=== PATIENT | female | born 1985 | race Hispanic/Latino ===

== ENCOUNTER 2017-10-08 15:12 | Emergency (ER) | payer OTHER, SELFPAY ==
[2017-10-08 15:14] VITALS: BP 121/84; PULSE 73; RESP 16; TEMP 36.8; O2SAT 98; BMI 25.0
--- NOTE | 2017-10-08 15:24 | RAD_ITS ---
STUDY: X-RAY - RIGHT HAND REASON FOR EXAM: Female, 32 years old. Laceration third metacarpal phalangeal joint TECHNIQUE: 3 view(s) of the hand. COMPARISON: None. FINDINGS: Normal radiocarpal articulation. Normal distal radioulnar joint. Normal visualized carpal bones. Normal carpal articulations Normal carpometacarpal articulation of the thumb. Normal second through fifth carpometacarpal joints. Normal metacarpi. Normal metacarpophalangeal joint of the thumb. Normal interphalangeal joint of the thumb. Normal proximal and distal phalanges of the thumb. Normal metacarpophalangeal joints of the second through fifth fingers. Normal proximal and distal interphalangeal joints of the second through fifth fingers. Normal phalanges of the second through fifth fingers. The soft tissue structures are unremarkable. RAD/Hand Min 3 Views IMPRESSION: Normal x-ray examination of the hand. Electronically Signed: Frandy Dacosta MD at 16:47 EDT , Service support ,
[2017-10-08] MEDS: Diphth,Pertuss(Acell),Tet Vac 0.5 ML Vial IM (16:02)
[2017-10-08] MEDS: Cefazolin 1 GM/50 ML BAG IV (16:03)
--- NOTE | 2017-10-08 16:21 | ED.DCSUM_ITS ---
- ER Visit Summary Date of Service: 10/08/17 Chief Complaint: [Laceration right hand] History of Present Illness: The patient is a 32 F [presents to the emergency department with a laceration to her right hand that occurred while at work today. Patient states she was mixing some salts in a [employer] when the glass beaker broke lacerating her right hand. Patient is right-hand dominant. Patient unsure of her last tetanus.] Physical Examination: [Right hand-patient has a 1 cm flap-like laceration over the dorsum of the distal phalanx of the right long finger. Patient also has a laceration that is 1.5 cm over the dorsum of the third MCP joint. Patient has decreased ability to extend the long finger at the MCP joint. Patient nervously intact distally.] Test Results: [X-ray of right hand showed no foreign bodies or fractures.] Emergency Department Course and Treatment: Wound sterilely draped and prepped. The 1 cm laceration over the dorsum of the distal phalanx of the right long finger was cleansed with Shur-Clens and irrigated with saline. Anesthetized locally with 1% lidocaine total of 1 cc. Using 5-0 nylon a total of 3 single interrupted sutures placed with good wound edge approximation. 1.5 cm laceration to dorsum of third MCP joint was sterilely draped and prepped as well. Wound was cleansed with Shur-Clens and irrigated with saline. Using 1% lidocaine a total of 3 cc used to anesthetize the area locally. The wound was inspected and no foreign bodies were noted within the wound. Patient is noted to have an extensor tendon laceration. Wound was again irrigated with copious saline. Using 5-0 nylon a total of 3 single interrupted sutures placed to close the skin. Patient had a aluminum extension splint applied. Clean dressing applied. [] Treatment Plan: [I initially discuss case with Dr. Willams who asked that I close the skin and she will see the patient in the office tomorrow for further exploration and definitive treatment. Patient received tetanus and Ancef in the emergency department.] Disposition: [Discharged to home in stable condition] Impression: [Laceration right hand 1.5 cm with extensor tendon laceration- simple repair Laceration right long finger 1.0 cm with simple repair] This note was generated with [employer] software. It may contain incorrect words, spelling, and punctuation that were not noted in review of the chart prior to signing ED Disposition - Plan for ED Patient: Chief Complaint: Upper Extremity Injury Referrals: Care Physician,No Primary [Primary Care Provider] -
--- NOTE | 2017-10-08 16:21 | ED.DEP ---
ED Disposition - Plan for ED Patient: Chief Complaint: Upper Extremity Injury Instructions: ED Laceration Hand Prescriptions: Cephalexin [Keflex] 500 mg PO Q6 #40 cap Referrals: Care Physician,No Primary [Primary Care Provider] - Lizzette Willams DO [STAFF PHYSICIAN] - 1 Day
[2017-10-08 16:36] VITALS: PULSE 75; RESP 16; O2SAT 99
== END 2017-10-08 16:43 | disposition home or self-care (01) ==
PROVIDERS: Emergency Provider Emergency Medicine
DX: S66.329A Laceration of extensor muscle, fascia and tendon of unspecified finger at wrist and hand level, initial encounter (principal); S61.212A Laceration without foreign body of right middle finger without damage to nail, initial encounter; W25.XXXA Contact with sharp glass, initial encounter; Y93.9 Activity, unspecified; Y92.89 Other specified places as the place of occurrence of the external cause; Y99.0 Civilian activity done for income or pay; Z23 Encounter for immunization
CPT/HCPCS: 12001; 73130; 90471; 90715; 99285; J7050; A4216

== ENCOUNTER 2018-01-08 09:00 | Outpatient (RCR) | payer OTHER, SELFPAY ==
--- NOTE | 2017-12-18 15:17 | HP.OTEVAL_ITS ---
Patient's Visit Information NELSY METCALF is a 32 year old F, referred to Occupational Therapy by Micah Rosario, with a diagnosis of laceration of other specified muscles fascia and tendons of wrist/hand. Date of Evaluation: 12/18/17 Occupational Therapist: Emily Hatch, JAVY/Kyle, CHT - Subjective Subjective: This 32 year old female was seen for intial OT eval on 12-18-17. Pt states while working [employer] a Beaker broke on her hand and lacerated her extensor tedon- pt states she had sx on 10-15-17. pt would like to gain increase in functional range of motion and strength to perform all BADLS and IADLS - Pain right 4 Pain Intensity Range: 0, 5 - ROM MP: right Long finger -15/65 left RF 0/90 PIP: 0/90 ROM Comments: Right Long finger MCP -15/65 PIP 0/90. Right RF MCP +5/55 PIP 0/ 90. Right LF MCP 0/45 PIP 0/90. pt demo with limited composite fist at this time - Strength Child Care Attendant: right 5# left 25# Lateral Pinch: right 4# left 8# Tripod Pinch: right 4# left 6# - Edema PIP: right MF 6.5 left MF 6.5 - Sensation Sensation Comments: denies - DASH-Disabilities of Arm, Shoulder& Hand DASH Sum: 66 - Goals Goal:: Following S/P 12 weeks pt will demo a right product support technician strength at 30# or greater to increase pts ind. with BADLS and IADls by D/C Goal:: pt will demo a composite fist to ind. perform her BADLs, IADLs and work tasks by d/c Goal:: pt will demo understanding of scar mtg by end of 2nd session. Goal:: pt will report IND. with all BADLs and IADLs by D/C - Rehabilitation General Assessment: PT is S/P right lacerated Extensor tendon right long finger at MPJ. complex laceration right long finger at DIPJ. pt is currently 9 weeks S /P and demo with limited composite fist, and demo weak product support technician following her sx. The limitations have made pt ad. her abilities to perfrom her BADLS and IADLS. Pt would benefit from skilled OT services to return pt to [facility]. Therapy services will follow extensor tendon repair protocol Rehabilitation Potential: Excellent - Anticipated Interventions Anticipated Interventions: A/AAROM/PROM, Strengthening, Scar Care, Modalities, Orthoses, Ergonomic Education, Fine Motor Coord/Karl - Visit Plan Frequency: 1-2x /Week Duration: 4 Weeks General Plan: 1-2x week for 4 weeks to focus on pts AROM, progress to strengthening, pt to use night extension splinting, ROM with sheri straps initially.- TEXT: Thank you for the opportunity to evaluate your patient. For Medicare and Medicare HMO plans, please review the plan of care and approve it. It will need to be FAXED BACK to us at [phone] for Medicare purposes. Please let me know if there are questions or concerns regarding this plan of care. Physician Signature: Date:
--- NOTE | 2018-01-08 09:21 | HP.OTDCSUM ---
HP - OT D/C Summary It has been my pleasure to treat NELSY METCALF under orders from Micah Rosario, for the diagnosis of laceration of other specified muscles fascia and tendons of wrist/hand for a total of 4 visit(s). Please see the following information for a summary of their discharge status. - Objective Objective/Function: pt demo right senior nuclear medicine technologist 30# left 35#. later pinch 6#. tripod pinch 6#. right MF MCP -3/75. right MF PIP 97 - Goals Patient Goals: Regain Mobility, Regain Strength, Use Hand/Wrist/Arm Normally Again Goal:: Following S/P 12 weeks pt will demo a right senior nuclear medicine technologist strength at 30# or greater to increase pts ind. with BADLS and IADls by D/C Goal:: pt will demo a composite fist to ind. perform her BADLs, IADLs and work tasks by d/c Goal:: pt will demo understanding of scar mtg by end of 2nd session. Goal:: pt will report IND. with all BADLs and IADLs by D/C - Plan Plan: D/C with HEP - D/C Information Discharge Comments: pt was seen 1x week for 4 weeks following a ext. tendon repair- pt has progressed well with therapy and reports no concerns at this time- pt has met goals in OT and is D/C at this time. If there are questions or concerns regarding this patient's occupational therapy, please fell free to call me at [phone]. Thank you for the referral of this patient. Sincerely, Emily Hatch, OTR/L, CHT
== END 2018-01-08 14:23 | disposition home or self-care (01) ==
LOC: OT 09:00
PROVIDERS: Visit Provider Orthopaedic Surgery
DX: S66.821D Laceration of other specified muscles, fascia and tendons at wrist and hand level, right hand, subsequent encounter (principal)
CPT/HCPCS: 97110; 97140; 97166; 97168

== ENCOUNTER 2022-06-17 18:46 | Emergency (ER) | payer OTHER, SELFPAY ==
[2022-06-17] VITALS (7 sets, daily range): BP systolic 104–119; BP diastolic 78–93; PULSE 70–88; RESP 14–25; TEMP 36.9; O2SAT 96–100; BMI 29.2
--- NOTE | 2022-06-17 20:40 | EKG12_ITS ---
Test Reason : CP Blood Pressure : / mmHG Vent. Rate : 096 BPM Atrial Rate : 096 BPM P-R Int : 150 ms QRS Dur : 100 ms QT Int : 396 ms P-R-T Axes : 048 038 004 degrees QTc Int : 500 ms Normal sinus rhythm Nonspecific ST and T wave abnormality Prolonged QT Abnormal ECG Confirmed by NINFA MCKEON, KARLENE ([id number]), marketing editor BEN COOK ([id number]) on 06/18/2022 9:19:42 AM Referred By: PERRI Confirmed By:KARLENE OCASIO MD
[2022-06-17 20:58] LABS: Absolute Lymphocyte Count 2.51 X10^3/uL (0.83-4.51); Absolute Neutrophil Count 4.7 X10^3/uL (2.0-7.7); Basophil# 0.04 X10^3/uL; Basophil% 0.5 % (0-1); Eosinophil# 0.06 X10^3/uL; Eosinophils% 0.8 % (0-5); Hematocrit 42.5 % (37-47); Hemoglobin 14.4 g/dL (12.0-15.0); Lymphocyte # 2.51 X10^3/ul (0.83-4.51); Lymphocyte % 31.7 % (19-41); Mean Corp Hgb Conc 33.9 g/dL (32-36); Mean Corpuscular Hgb 30.2 pg (27.0-32.0); Mean Corpuscular Volume 89.1 fL (81-99); Monocyte# 0.58 X10^3/uL; Monocyte% 7.3 % (0-10); NRBC Flagged by Analyzer 0 % (0-5); Neutrophil # 4.71 X10^3/uL (2.7-7.7); Neutrophil % 59.4 % (47-70); Platelet Count 272 K/mm3 (150-450); RBC Distribution Width CV 11.7 % (11.6-14.6); Red Blood Count 4.77 M/mm3 (4.2-5.4); White Blood Count 7.9 K/mm3 (4.4-11.0)
[2022-06-17 21:06] LABS: Anion Gap 9 (5-15); BUN 17 mg/dL (7-18); BUN/Creat Ratio 28.1 RATIO (10-20); Calcium,Total 9.2 mg/dL (8.5-10.1); Chloride 103 mmol/L (98-107); Creatinine, Serum 0.61 mg/dL (0.55-1.02); EST Glomerular Filtration Rate 119 mL/min (>60); Est Glom Filt Rate - Afr Amer 144 mL/min (>60); Estimated Creatinine Clearance 115.83 ml/min; Glucose 100 mg/dL (74-106); Potassium 3.4 mmol/L (3.5-5.1); Sodium Level 138 mmol/L (136-145); Troponin-I HS < 3 pg/mL (3.0-54.0)
--- NOTE | 2022-06-17 21:10 | RAD_ITS ---
STUDY: X-RAY CHEST REASON FOR EXAM: Female, 36 years old. chest pain TECHNIQUE: Single frontal view of the chest. COMPARISON: None. FINDINGS: The lungs are clear and expanded. There is no demonstrated pleural abnormality. Normal size heart. Normal mediastinum and qian. Normal visualized pulmonary arteries. Normal visualized aortic arch and descending thoracic aorta. Normal visualized thoracic spine. Normal visualized ribs, clavicles, and shoulders. There is no demonstrated abnormality of the visualized soft tissue structures of the upper abdomen. RAD/Chest 1 View (Portable) IMPRESSION: Normal x-ray examination of the chest. Electronically Signed: Frandy Dacosta MD at 21:39 EST ,
--- NOTE | 2022-06-17 22:39 | ED.VIS.CHEST ---
HPI History of Present Illness Chief Complaint: Chest Pain Informant: patient Onset/Context/Timing Onset: Today Activity at onset: sudden and activity on onset (sitting in passenger seat in car with her , on way to restaraunt to eat dinner) Narrative Narrative: Patient presents soon after she had an episode of chest discomfort. She states the episode lasted about 30 minutes, substernal discomfort, tingling and discomfort in the left upper extremity, feeling a little short of breath, near syncopal, and felt like her heartbeat was beating hard but not necessarily irregularly or quickly. In fact, she was checking her apple watch to watch her heart rate, and it was in the 70s and 80s the entire time throughout this. She has a history of mitral valve prolapse but no other medical problems. She takes no medications for it. She states now she feels fine, but she still has some tingling in her left upper extremity and since the patient has been here for about 2 or 3 hours prior to my evaluation, she states she has had fleeting episodes of mild substernal any of the other symptoms recurring, lasting a minute or so. No pleuritic symptoms. No syncope. She has a cough and felt tired throughout the day today with mild intermittent brief sharp left-sided chest pains prior to this above episode. No fevers or chills. No leg pain or swelling. No history of DVT or PE or recent travel out of the area, no other hospitalization, immobilization, or recent surgery. [facility] Medical History (Updated 06/17/22 @ 23:[address] Lasha Youngblood MD) Anemia Fibroadenoma of breast Mitral valve prolapse Home Medications ibuprofen 200 mg tablet (Advil) 200 mg PO Q6H PRN Pain 04/26/21 [History Last Taken Unknown] pantoprazole 40 mg tablet,delayed release 40 mg PO DAILY #14 tabs 06/17/22 [Rx Last Taken Unknown] Allergy/AdvReac Type Severity Reaction Status Date / Time No Known Allergies Allergy Verified 06/17/22 18:53 Family History Father Diabetes Mother Hypertension Surgical History S/P tendon repair Social History (Updated 06/17/22 @ 22:[address] Lasha Youngblood MD) Smoking Status: Never smoker alcohol intake: never substance use type: does not use ROS ROS ED Constitutional Constitutional ED: Denies chills or fever(s) Eyes Eyes: Denies change in vision or diplopia ENT ENT ED: Denies rhinorrhea or sore throat Cardiovascular Cardiovascular: Reports as per HPI, chest pain and pounding heartbeat; Denies irregular heart rhythm, orthopnea or palpitations Respiratory/Chest Respiratory/Chest: Reports dyspnea; Denies cough, dyspnea on exertion or orthopnea Gastrointestinal Gastrointestinal: Denies abdominal pain, diarrhea, nausea or vomiting Genitourinary Genitourinary ED: Denies dysuria or hematuria Musculoskeletal Musculoskeletal: Denies back pain or neck pain Integumentary Denies abscess or rash Neurologic Neurologic: Reports paresthesias LUE; Denies headache(s) or weakness Psychiatric Psychiatric: Denies anxiety or suicidal thoughts EXAM Physical Exam Const Vital Signs: 06/17/22 18:48 06/17/22 18:54 06/17/22 19:50 Temperature 98.4 F Temperature Source Oral Pulse Rate 88 73 Respiratory Rate 20 H 15 Respiratory Effort Normal Non-Labored Blood Pressure 119/78 107/83 H Blood Pressure Mean 91 91 Pulse Ox 100 97 Oxygen Delivery Method Room Air Room Air 06/17/22 20:02 06/17/22 20:40 06/17/22 21:05 Temperature Temperature Source Pulse Rate 86 70 Respiratory Rate 17 14 Respiratory Effort Blood Pressure 104/84 H 105/87 H Blood Pressure Mean 90 93 Pulse Ox 98 97 Oxygen Delivery Method Room Air Room Air Room Air 06/17/22 22:32 06/17/22 23:04 Temperature Temperature Source Pulse Rate 81 76 Respiratory Rate 25 H 17 Respiratory Effort Blood Pressure 116/93 H 107/89 H Blood Pressure Mean 100 95 Pulse Ox 96 97 Oxygen Delivery Method Room Air Room Air Positive well nourished and well developed General Appearance ED: well developed and NAD HEENT Reports moist mucous membranes normocephalic and atraumatic Eyes PERRL and EOMs intact bilaterally Neck full ROM, supple and no JVD Resp normal respiratory effort and clear to auscultation bilaterally Cardio regular rate, regular rhythm and no murmurs Rate: Negative for tachycardic Peripheral Pulses: pulses 2+ throughout GI non-tender and non-distended Auscultation: normoactive bowel sounds Palpation: soft Back/Spine no CVA tenderness General Back: other FROM Extremity normal to inspection and no calf tenderness General Extremety ED: Negative for edema, pulses abnormal or tenderness General Extremity: Negative for edema or pulses abnormal Neuro oriented x3, CN's II-XII intact bilaterally and no sensory deficits noted Sensorium / Orientation: awake and alert Motor Exam: strength 5/5 throughout Skin no rashes or lesions noted and no wounds Heart Score History: Moderately Suspicious ECG: Nonspecific Repolarization Age: </= 45 years Risk Factors: No Risk Factors Troponin: </= Normal Limit Score: 2 MDM MDM MDM Narrative Medical decision making narrative: Patient had protocol orders in, a cardiac work-up including chest x-ray, labs, EKG, hours prior to my evaluation. It is all normal. I did a repeat troponin that was performed more than 2 hours after the initial, results are noted. I also added a D-dimer which was normal. Patient had a couple episodes of sharp left-sided nonpleuritic chest discomfort that were brief, no telemetry events or dysrhythmias while she was here. She was given a GI cocktail, but did not make major difference, but she did not have any more the substernal discomfort. Seems she was having 2 different types of chest discomfort. Then she offers more information that she has been having mild versions of these symptoms at night often. Perhaps this is GI related. We will place her on a 2-week course of a PPI and encouraged outpatient follow-up, all questions answered at the bedside. Lab Data Attestation: I reviewed the patient's lab results. Labs: Laboratory Results - last 24 hr 06/17/22 06/17/22 06/17/22 19:08 19:08 22:57 WBC 7.9 RBC 4.77 Hgb 14.4 Hct 42.5 MCV 89.1 MCH 30.2 MCHC 33.9 RDW Std Deviation 38.0 RDW Coeff of Elan 11.7 Plt Count 272 MPV 9.0 Immature Gran % (Auto) 0.300 Neut % (Auto) 59.4 Lymph % (Auto) 31.7 [place] % (Auto) 7.3 Eos % (Auto) 0.8 Baso % (Auto) 0.5 Absolute Neuts (auto) 4.7 Absolute Lymphs (auto) 2.51 Nucleated RBC % 0 D-Dimer Quant (PE/DVT) < 0.27 L Sodium 138 Potassium 3.4 L Chloride 103 Carbon Dioxide 26.0 Anion Gap 9 BUN 17 Creatinine 0.61 Estim Creat Clear Calc 115.83 Est GFR (MDRD) Af Amer 144 Est GFR (MDRD) Non-Af 119 BUN/Creatinine Ratio 28.1 H Glucose 100 Calcium 9.2 Troponin I High Sens < 3 L 06/17/22 22:57 WBC RBC Hgb Hct MCV MCH MCHC RDW Std Deviation RDW Coeff of Elan Plt Count MPV Immature Gran % (Auto) Neut % (Auto) Lymph % (Auto) [place] % (Auto) Eos % (Auto) Baso % (Auto) Absolute Neuts (auto) Absolute Lymphs (auto) Nucleated RBC % D-Dimer Quant (PE/DVT) Sodium Potassium Chloride Carbon Dioxide Anion Gap BUN Creatinine Estim Creat Clear Calc Est GFR (MDRD) Af Amer Est GFR (MDRD) Non-Af BUN/Creatinine Ratio Glucose Calcium Troponin I High Sens 4 Radiography Chest X-Ray - ED: 1 View, Read by ED Physician and No Acute Disease Diagnostic Testing: Clinical Impression(s) from Imaging Studies Chest X-Ray 06/17/22 21:10 IMPRESSION: Normal x-ray examination of the chest. Electronically Signed: Frandy Dacosta MD at 21:39 EST Reading Location ID and State: [address] [place] [address] , Service support , Rhythm Strip Rhythm Strip: Sinus Rhythm Rate: 80 Ectopy: None EKG Initial EKG: Attestation: I personally reviewed and interpreted this EKG as follows: Interpretation: Sinus Rhythm, No Acute Injury Pattern and Non-Specific ST Changes (Diffusely) Discharge Plan Triage Chief Complaint: Chest Pain ED Provider: Lasha Youngblood Dx/Rx/DC Orders Clinical Impression: Chest pain, unspecified, Acute dyspnea, Lightheadedness Instructions: ED Chest Pain, Uncertain Cause Prescriptions: New pantoprazole 40 mg tablet,delayed release (DR/EC) 40 mg PO DAILY Qty: 14 0RF No Action ibuprofen [Advil] 200 mg tablet 200 mg PO Q6H PRN (Reason: Pain) Primary Care Provider: Care Physician,No Primary Referrals: Jocelyne Mir MD [Med Staff - Painter Decorator] - As soon as possible Care Physician,No Primary [Primary Care Provider] - Disposition Disposition: Home, Self Care
[2022-06-17] MEDS: Mag Hydrox/Al Hydrox/Simeth 30 ML UDC PO (22:50)
[2022-06-17 23:22] LABS: D-Dimer Quantitative (DVT/PE) < 0.27 FEU/ug/m (0.27-0.49)
[2022-06-17 23:23] LABS: Troponin-I HS 4 pg/mL (3.0-54.0)
[2022-06-18] MEDS: Dicyclomine 10 MG Capsule 20 MG PO (00:04)
[2022-06-18] MEDS: Pantoprazole Sodium 40 MG Tablet PO (00:04)
== END 2022-06-18 00:10 | disposition home or self-care (01) ==
PROVIDERS: Emergency Provider Emergency Medicine; Visit Provider Emergency Medicine
DX: R07.9 Chest pain, unspecified (principal); R06.00 Dyspnea, unspecified; R42 Dizziness and giddiness
CPT/HCPCS: 71045; 80048; 84484; 85025; 85379; 93005; 99284; A4216